=== PATIENT | male | born 1980 | race African-American/Black ===

== ENCOUNTER 2024-02-27 05:11 | Emergency (ER) | payer OTHER ==
[~2024-02-27] VITALS: Ht 175.3 cm; Wt 109.3 kg
[2024-02-27] MEDS ORDERED: methylPREDNISolone SOD SUCC 125 MG/2ML VIAL ONE (05:46)
[2024-02-27] MEDS ORDERED: FAMOTIDINE/PF INJ 20 MG/2 ML VIAL IV ONE (05:46)
[2024-02-27] MEDS: IV NS 0.9% 1,000 ML IV ONE (05:59)
[2024-02-27] MEDS: methylPREDNISolone SOD SUCC 125 MG/2ML VIAL IV ONE (05:59)
[2024-02-27] MEDS: FAMOTIDINE/PF INJ 20 MG/2 ML VIAL IV ONE (05:59)
[2024-02-27 06:00] LABS: BASOPHILS % (AUTO) 0.4 % (0.0-2.0); EOSINOPHILS # (AUTO) 0.4 K/uL (0.0-0.7); EOSINOPHILS % (AUTO) 4.9 % (0.0-6.0); HEMATOCRIT 40 % (39-51); HEMOGLOBIN 13.3 g/dL (13.5-17.5); LYMPHOCYTES # (AUTO) 0.9 K/uL (0.8-4.8); LYMPHOCYTES % (AUTO) 10.2 % (20.0-44.0); MEAN CORPUSCULAR HEMOGLOBIN 31 PG (26.0-33.0); MEAN CORPUSCULAR HGB CONC 33 g/dl (31.0-36.0); MEAN CORPUSCULAR VOLUME 92 fL (80-96); MONOCYTES # (AUTO) 0.9 K/uL (0.1-1.30); MONOCYTES % (AUTO) 10.1 % (2.0-12.0); NEUTROPHILS # (AUTO) 6.4 K/uL (1.8-8.9); NEUTROPHILS % (AUTO) 74.4 % (43.0-81.0); PLATELET COUNT (AUTO) 211 K/uL (150-450); RED BLOOD CELL COUNT(AUTO) 4.35 MIL/uL (4.5-6.0); RED CELL DISTRIBUTION WIDTH 14.7 % (11.5-15.0); WHITE BLOOD COUNT (AUTO) 8.6 K/uL (4.3-11.0)
[2024-02-27] MEDS: EPINEPHRINE (1:1000) 1 MG/ML AMPUL IM ONE (06:00)
[2024-02-27] MEDS ORDERED: EPINEPHRINE (1:1000) 1 MG/ML AMPUL ONE (06:03)
[2024-02-27] MEDS ORDERED: DIPH25TA62 PO ×2 (06:11→06:36)
[2024-02-27] MEDS ORDERED: PRED50TA PO ×2 (06:11→06:36)
[2024-02-27 06:17] LABS: BILIRUBIN,TOTAL 0.5 mg/dL (0.2-1.0); CALCIUM, SERUM 8.2 mg/dL (8.5-10.1); CREATININE 1.1 mg/dL (0.6-1.3); POTASSIUM 5.3 mmol/L (3.5-5.1); TOTAL PROTEIN, SERUM 6.6 g/dL (6.4-8.2)
[2024-02-27] MEDS ORDERED: HYDR28.318 TP (06:36)
[2024-02-27] MEDS ORDERED: GLY/480L3 TP (06:36)
[2024-02-27 08:03] VITALS: BP 145/85; TEMP 98.8; O2SAT 98
== END 2024-02-27 08:04 | disposition home or self-care (01) ==
LOC: ER 05:11
DX: L25.9 Unspecified contact dermatitis, unspecified cause (principal)
CPT/HCPCS: 99285; 96374; 96361; 96375; 85025; 36415; 80053; 96372; J0171; J3490; J2919